=== PATIENT | male | born 1955 | race Caucasian/White ===

== ENCOUNTER 2019-09-29 00:28 | Emergency (ER) | payer OTHER, BC ==
[2019-09-29] MEDS ORDERED: DEXTROSE 50%-WATER 25 GM/50 ML DISP.SYRIN ONE (00:32)
[2019-09-29 00:38] VITALS: TEMP 97.1; BMI 29.8
[2019-09-29 00:51] VITALS: BP 109/67; PULSE 66
--- NOTE | 2019-09-29 00:51 | PDOC ---
History of Present Illness - General Chief Complaint: Blood Sugar Problem Stated Complaint: CONFUSED Time Seen by Provider: 09/29/19 00:45 - History of Present Illness Initial Comments: 09/29/19 00:48 64-year-old male found diaphoretic and confused by coworkers with insulin pump in place. Patient found to have a blood sugar of 22 on arrival to the emergency department. Past History - Travel Traveled outside of the country in the last 30 days: No - Past Medical History Allergies/Adverse Reactions: Allergies Allergy/AdvReac Type Severity Reaction Status Date / Time No Known Allergies Allergy Verified 09/29/19 00:36 COPD: No Diabetes: Yes - Immunization History Immunization Up to Date: Yes - Psycho Social/Smoking Cessation Hx Smoking History: Never smoked Have you smoked in the past 12 months: No Information on smoking cessation initiated: No Hx Alcohol Use: No Drug/Substance Use Hx: No Review of Systems - Review of Systems Able to Perform ROS?: No (ams) Is the patient limited Maori proficient: No *Physical Exam - Vital Signs Last Vital Signs Temp Pulse Resp BP Pulse Ox 97.1 F L 95 H 20 125/65 95 09/29/19 00:36 09/29/19 00:36 09/29/19 00:36 09/29/19 00:36 09/29/19 00:36 - Physical Exam Comments: 09/29/19 00:49 GENERAL: Diaphoretic and agitated HEAD: No signs of trauma EYES: PERRLA, ENT:mucous membranes moist NECK: Normal ROM, supple, no lymphadenopathy, JVD LUNGS: Breath sounds equal, clear to auscultation bilaterally. No wheezes, and no crackles. Normal work of breathing. HEART: Regular rate and rhythm, ABDOMEN: Soft, nontender, normoactive bowel sounds. No guarding, Non- distended. Right lower quadrant insulin pump in place : CHEST WALL: BACK: No midline tenderness. EXTREMITIES: Normal range of motion, no edema. No clubbing or cyanosis. 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 - Post Discharge Activity
[2019-09-29] MEDS ORDERED: DEXTROSE 50%-WATER - 25 GM/50 ML VIAL IVPUSH ONE (01:22)
== END 2019-09-29 01:02 | disposition home or self-care (01) ==
LOC: JER 00:28
PROC: 3E013VG Introduction of Insulin into Subcutaneous Tissue, Percutaneous Approach (ICD-10-PCS; principal; 2019-09-29)
DX: T38.3X5A Adverse effect of insulin and oral hypoglycemic [antidiabetic] drugs, initial encounter (principal); E11.9 Type 2 diabetes mellitus without complications; Z96.41 Presence of insulin pump (external) (internal)
CPT/HCPCS: 82962; 99283-25